=== PATIENT | female | born 1985 | race Caucasian/White ===

== ENCOUNTER 2016-12-24 00:52 | Emergency (ER) | payer OTHER ==
[2016-12-24 02:32] LABS: Hematocrit 33 % (35-47); Hemoglobin 11.4 g/dl (12.0-16.0); Mean Corpuscular HGB Conc 34 g/dl (31-36); Mean Corpuscular Hemoglobin 32 pg (27-31); Mean Corpuscular Volume 92 fL (80-97); Mean Platelet Volume 9 um3 (7.4-10.4); Red Blood Count 3.59 10^6/ul (4.0-5.4); Red Cell Distribution Width 14 % (10.5-15); White Blood Count 9.7 10^3/ul (3.5-10.8)
[2016-12-24 02:47] LABS: Albumin 3.4 g/dL (3.2-5.2); BUN/Creatinine Ratio 11.1 (8-20); Calcium 8.9 mg/dL (8.6-10.3); EGFR African American 170.5 (>60); EGFR Non-African American 132.6 (>60); Globulin 3.1 g/dL (2-4); Potassium 3.3 mmol/L (3.5-5.0); Total Bilirubin 0.3 mg/dL (0.2-1.0); Total Protein 6.5 g/dL (6.4-8.9)
[2016-12-24] MEDS ORDERED: Amoxicillin PO (*) 500 MG CAP PO ONE (02:56)
--- NOTE | 2016-12-24 02:56 | ED ---
Flaco Ledesma Thomas, scribed for Manohar Whalen MD on 12/24/16 at 0129 . Skin Complaint - HPI Summary HPI Summary: The pt is a 31 y/o F who is 5.5 months to the ED c/o rash on her posterior L leg and 6/10 pain in the area of the rash. She first noticed the rash two days ago. She additionally c/o fever (Tmax 101, onset yesterday), arthralgia, fatigue, and LIMON. Her OBGYN is at the [facility]. The pt claims that she has "not been keeping track of ticks" on her skin. 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, Tmax 101, Rash Related History: Insect Bite/Sting - speculated - Allergy/Home Medications Allergies/Adverse Reactions: Allergies Allergy/AdvReac Type Severity Reaction Status Date / Time Latex Allergy Itching Verified 12/24/16 01:02 PMH/Surg Hx/FS Hx/Imm Hx Previously Healthy: Yes Respiratory History: Denies: Hx Chronic Obstructive Pulmonary Disease (COPD) Opthamlomology History: Denies: Hx Legally Blind Infectious Disease History: Denies: Traveled Outside the [place] in Last 30 Days - Family History Known Family History: Positive: Other - POS: colon CA, lung CA - Social History Alcohol Use: None Substance Use Type: Reports: None Smoking Status (MU): Never Smoked Tobacco Review of Systems Positive: Fever - afebrile in the ED but claims to have have a fever 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, Tmax 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, Fatigue Eyes: Negative ENT: Negative Cardiovascular: Negative Respiratory: Negative Gastrointestinal: Negative Genitourinary: Negative Positive: Arthralgia Skin: Negative Positive: Headache Psychological: Normal All Other Systems Reviewed And Are Negative: Yes Physical Exam Triage Information Reviewed: Yes Vital Signs On Initial Exam: Initial Vitals Temp Pulse Resp BP Pulse Ox 98.9 F 105 18 120/70 96 12/24/16 01:04 12/24/16 01:04 12/24/16 01:04 12/24/16 01:04 12/24/16 01:04 Vital Signs Reviewed: Yes Appearance: Positive: Well-Appearing, No Pain Distress Skin: Positive: Warm, Other - target like lesion behind lt knee Head/Face: Positive: Normal Head/Face Inspection Eyes: Positive: TAMMY ENT: Positive: Hearing grossly normal Neck: Positive: Supple Respiratory/Lung Sounds: Positive: Clear to Auscultation, Breath Sounds Present Cardiovascular: Positive: RRR Abdomen Description: Positive: Nontender, Soft - gravid Bowel Sounds: Positive: Present Musculoskeletal: Positive: Strength/ROM Intact Neurological: Positive: Alert, Oriented to Person Place, Time Psychiatric: Positive: Affect/Mood Appropriate - [place] Coma Scale Coma Scale Total: 15 Diagnostics - Vital Signs Vital Signs Temp Pulse Resp BP Pulse Ox 12/24/16 01:09 98.9 F 105 18 120/70 96 12/24/16 01:04 98.9 F 105 18 120/70 96 - Laboratory Lab Results: Lab Results 12/24/16 12/24/16 Range/Units 02:21 02:21 WBC 9.7 (3.5-10.8) 10^3/ul RBC 3.59 L (4.0-5.4) 10^6/ul Hgb 11.4 L (12.0-16.0) g/dl Hct 33 L (35-47) % MCV 92 (80-97) fL MCH 32 H (27-31) pg MCHC 34 (31-36) g/dl RDW 14 (10.5-15) % Plt Count 193 (150-450) 10^3/ul MPV 9 (7.4-10.4) um3 Neut % (Auto) 82.2 (38-83) % Lymph % (Auto) 10.1 L (25-47) % Foster % (Auto) 6.7 (1-9) % Eos % (Auto) 0.3 (0-6) % Baso % (Auto) 0.7 (0-2) % Absolute Neuts (auto) 8.0 H (1.5-7.7) 10^3/ul Absolute Lymphs (auto) 1.0 (1.0-4.8) 10^3/ul Absolute Monos (auto) 0.6 (0-0.8) 10^3/ul Absolute Eos (auto) 0 (0-0.6) 10^3/ul Absolute Basos (auto) 0.1 (0-0.2) 10^3/ul Absolute Nucleated RBC 0 10^3/ul Nucleated RBC % 0 Sodium 133 (133-145) mmol/L Potassium 3.3 L (3.5-5.0) mmol/L Chloride 102 (101-111) mmol/L Carbon Dioxide 22 (22-32) mmol/L Anion Gap 9 (2-11) mmol/L BUN 6 (6-24) mg/dL Creatinine 0.54 (0.51-0.95) mg/dL Est GFR ( Amer) 170.5 (>60) Est GFR (Non-Af Amer) 132.6 (>60) BUN/Creatinine Ratio 11.1 (8-20) Glucose 128 H (70-100) mg/dL Calcium 8.9 (8.6-10.3) mg/dL Total Bilirubin 0.30 (0.2-1.0) mg/dL AST 31 (13-39) U/L ALT 40 (7-52) U/L Alkaline Phosphatase 44 (34-104) U/L Total Protein 6.5 (6.4-8.9) g/dL Albumin 3.4 (3.2-5.2) g/dL Globulin 3.1 (2-4) g/dL Albumin/Globulin Ratio 1.1 (1-3) Result Diagrams: 12/24/16 02:21 12/24/16 02:21 Lab Statement: Any lab studies that have been ordered have been reviewed, and results considered in the medical decision making process. Re-Evaluation - Re-Evaluation First Eval Re-Evaluation Time: 02:57 Change: Improved - results d/w pt, will tx for presumed lyme, serology sent, pt to call ob today for f/u Course/Dx - Diagnoses Provider Diagnoses: Lyme disease Discharge - Discharge Plan Condition: Stable Disposition: HOME Prescriptions: Amoxicillin CAP* [Amoxicillin 500 MG CAP*] 500 mg PO TID #60 cap Patient Education Materials: Lyme Disease (ED) Referrals: Megan Dalton [Primary Care Provider] - 3 Days The documentation as recorded by the Flaco andrade Thomas accurately reflects the service I personally performed and the decisions made by me, Manohar Whalen MD.
[2016-12-24 03:16] VITALS: BP 114/65
== END 2016-12-24 03:15 | disposition home or self-care (01) ==
LOC: ED 00:52
DX: A69.20 Lyme disease, unspecified (principal); R21 Rash and other nonspecific skin eruption; R50.9 Fever, unspecified; R51 Headache
CPT/HCPCS: 36415; 80053; 85025; 86618; 99282; A9270-GY

== ENCOUNTER 2017-08-29 20:41 | Emergency (ER) | payer OTHER ==
[2017-08-29 20:50] VITALS: BP 115/75
[2017-08-29] MEDS ORDERED: Amoxicillin PO (*) 500 MG CAP PO ONE ×2 (21:23→21:47)
--- NOTE | 2017-08-29 21:32 | UC ---
HPI Febrile Illness - HPI Summary HPI Summary: 31 yo WF c/o 2 week h/o "not feeling well" associated with increasing bodyaches - upper back pains and LBPs, fevers up to 102 with left ear pain after a flight 3 weeks ago. 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 Hx Last Menstrual Period: Jul 2016 Onset/Duration: Started Weeks Ago Timing: Constant Initial Severity: Moderate Current Severity: Severe Pain Intensity: 2 - Allergy/Home Medications Allergies/Adverse Reactions: Allergies Allergy/AdvReac Type Severity Reaction Status Date / Time latex Allergy Itching Verified 08/29/17 20:51 MS Latex [Latex] Allergy Itching Verified 12/24/16 01:02 PMH/Surg Hx/FS Hx/Imm Hx - Additional Past Medical History Additional PMH: none - Surgical History Surgical History: None - Family History Known Family History: Positive: Other - POS: colon CA, lung CA - Social History Alcohol Use: None Substance Use Type: None Smoking Status (MU): Never Smoked Tobacco - Immunization History Most Recent Influenza Vaccination: fall 2016 Most Recent Pneumonia Vaccination: never Review of Systems Constitutional: Fever, Chills, Fatigue Skin: Negative Eyes: Negative ENT: Sore Throat, Ear Ache Respiratory: Negative Cardiovascular: Negative Gastrointestinal: Negative Genitourinary: Negative Motor: Negative Neurovascular: Negative Musculoskeletal: Myalgia Neurological: Negative Psychological: Negative All Other Systems Reviewed And Are Negative: Yes Physical Exam Triage Information Reviewed: Yes Appearance: Ill-Appearing Vital Signs: Initial Vital Signs Temp 38.2 C 08/29/17 20:47 Pulse 100 08/29/17 20:47 Resp 18 08/29/17 20:47 BP 115/75 08/29/17 20:47 Pulse Ox 98 08/29/17 20:47 Eye Exam: Normal ENT: Positive: Pharyngeal erythema, TM red - on L>R Dental Exam: Normal Dental: Positive: Cervical Lymphadenopathy - 1+ anterior cervical LAD Neck exam: Normal Neck: Positive: 1 Respiratory Exam: Normal Cardiovascular Exam: Normal Abdominal Exam: Normal Musculoskeletal Exam: Normal Neurological Exam: Normal Psychological Exam: Normal Skin Exam: Normal Course/Dx - Course Course Of Treatment: rapid strep neg, left TM red, bodyaches-likely viral illness concurrent with bacterially mediated OM - Diagnoses Clinic Provider Diagnoses: Left OM. viral illness Discharge - Discharge Plan Condition: Stable Disposition: HOME Prescriptions: Amoxicillin PO (*) [Amoxicillin 875 MG (*)] 875 mg PO BID 7 Days #14 tab Patient Education Materials: Ear Infection (ED), Viral Syndrome (ED) Referrals: Non Staff,Doctor [Primary Care Provider] - Additional Instructions: take medication as directed
== END 2017-08-29 21:55 | disposition home or self-care (01) ==
LOC: UCEAST 20:41
DX: H66.92 Otitis media, unspecified, left ear (principal); B34.9 Viral infection, unspecified; Z91.040 Latex allergy status
CPT/HCPCS: 87651; 99212; A9270-GY; G0463

== ENCOUNTER 2017-12-27 08:11 | Emergency (ER) | payer OTHER ==
[2017-12-27] MEDS ORDERED: Ondansetron ODT TAB* 4 MG PO ONE (08:19)
--- OUTSIDE RECORDS SUMMARY | 2017-12-27 08:26 | XMS REPORT ---
:1985 External Reference #:[id number] Author Organization [employer] Address [address] [address] Phone [phone] Care Team Providers Name Role Phone Neptali Dumont MD Primary Care Physician Unavailable Payers Type Date Identification Numbers Payment Provider Subscriber Commercial Policy Number: [id number] [employer] Caitlyn Weiner PayID: [id number] [address] [place] [address] Problems Date Description Provider Status Onset: 12/24/2017 H/O: asthma Neptali Dumont M.D.,FACP Active Note: as child Onset: 12/27/2016 Lyme disease Neptali Dumont M.D.,FACP Inactive Inactive: 12/24/2017 Onset: 12/27/2016 Normal Neptali Dumont M.D.,FACP Resolved Resolved: 12/24/2017 Family History Date Family Member(s) Problem(s) Comments Paternal Grandmother Mental Illness Maternal Grandfather Emphysema Maternal Grandmother Osteoporosis Maternal Grandmother Mental Illness Social History Type Date Description Comments Marital Status 12/27/2016 Significant Other Lives With Family 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 [employer] ETOH Use 12/27/2016 Denies alcohol use Smoking Patient has never smoked Recreational Drug Use Denies Drug Use Daily Caffeine 12/27/2016 Does Not Consume Caffeine Exercise Type/Frequency Exercises regularly Currently Active Patient is currently sexually active General Hx Text 1 baby boy at home Allergies, Adverse Reactions, Alerts Date Description Reaction Status Severity Comments 12/27/2016 Bee Pollen active Mild Medications Medication Date Status Form Strength Qnty SIG Indications Ordering Provider Doxycycline Active Tablets 100mg 20tabs 1 by mouth Neptali Hyclate 018 twice a D. anjelica Dumont M.D.,FACP No Active Hx Unknown Medications 018 - 018 Coricidin HBP Hx Tablets 4-30mg as Neptali Cough/Cold 018 - directed Janak Dumont, [place],FACP 018 Augmentin Hx Tablets 875-125mg 14tabs 1 tablet Unknown 018 - by mouth q12 hours 018 for 7 days Hx Tablets 30tabs 1 by mouth Other Vitamin 017 - every day Ordering Provider 018 Amoxicillin Hx Capsules 500mg 42caps 1 tab tid Other 017 - po x 14 Ordering days Provider 017 Vital Signs Date Vital Result Comment 12/24/2017 Height 66 inches 5'6" Weight 137.00 lb Heart Rate 85 /min BP Systolic Sitting 98 mmHg BP Diastolic Sitting 60 mmHg Body Temperature 96.0 F O2 % BldC Oximetry 96 % BMI (Body Mass Index) 22.1 kg/m2 03/22/2017 Height 66 inches 5'6" Weight 166.38 lb Heart Rate 60 /min BP Systolic Sitting 102 mmHg BP Diastolic Sitting 56 mmHg Respiratory Rate 14 /min Body Temperature 96.6 F BMI (Body Mass Index) 26.9 kg/m2 12/27/2016 Height 167 inches 13'11" Weight 154.38 lb Heart Rate 64 /min BP Systolic Sitting 106 mmHg BP Diastolic Sitting 50 mmHg Body Temperature 98.1 F O2 % BldC Oximetry 98 % BMI (Body Mass Index) 3.9 kg/m2 Results Test Date Test Result H/L Range Note Laboratory test finding 12/24/2017 Culture Throat <pending> Procedures Description No Information Encounters Type Date Location Provider CPT E[facility]M D[facility]:10[facility] Infectious Diseases Abiola Negro R53.83 Z33.1 Office Visit 12/27/2016 2:00p [employer] Internal Neptali Dumont, 44921 A69.20 Medicine - [place] Vivek Culver,FACP O00.01 Z33.1 Plan of Care No Information Available
--- NOTE | 2017-12-27 08:38 | UC ---
UC General HPI - HPI Summary HPI Summary: This pt is a 32 y/o female presenting to [facility] c/o nausea, vomiting, and left flank pain since 23:30 last night. Pt reports her left flank pain is intermittent with nausea and vomiting. She rates her pain 10/10 in severity. She has had some bowel movements. She states she has not been able to find a comfortable position. Denies fever, vaginal bleeding, vaginal discharge. Pt notes she gave 8 months ago and she is currently breast feeding. Pt has not had her menstrual cycle yet. - History of Current Complaint Chief Complaint: UCAbdominalPain Stated Complaint: NV Time Seen by Provider: 12/27/17 08:14 Hx Obtained From: Patient Hx Last Menstrual Period: 1 1/2 year ago Onset/Duration: Lasting Hours, Still Present Timing: Intermittent Episodes Lasting: - minutes Current Severity: Severe Pain Intensity: 10 Pain Location at: left flank Aggravating: nothing Alleviating: nothing Associated Signs & Symptoms: Positive: Nausea, Vomiting, Other - POS: left flank pain. Negative: Chest Pain, Fever, SOB - Allergy/Home Medications Allergies/Adverse Reactions: Allergies Allergy/AdvReac Type Severity Reaction Status Date / Time latex Allergy Itching Verified 12/27/17 08:19 Home Medications: Home Medications Acetaminophen [Tylenol Extra Strength] 500 mg PO Q6H PRN 12/27/17 [History Confirmed 12/27/17] Ibuprofen TAB* [Motrin TAB* 600 MG] 600 mg PO Q6H PRN 12/27/17 [History Confirmed 12/27/17] PMH/Surg Hx/FS Hx/Imm Hx - Additional Past Medical History Additional PMH: PMHx: Lyme disease Other Endocrine History: DENIES: diabetes Other Cardiovascular History: DENIES: HTN - Surgical History Surgical History: None - Family History Known Family History: Positive: Other - POS: colon CA, lung CA - Social History Alcohol Use: None Substance Use Type: None Smoking Status (MU): Never Smoked Tobacco - Immunization History Most Recent Influenza Vaccination: fall 2016 Most Recent Pneumonia Vaccination: never Review of Systems Constitutional: Negative Skin: Negative Eyes: Negative ENT: Negative Respiratory: Negative Cardiovascular: Negative Gastrointestinal: Vomiting, Nausea, Other - POS: Left flank pain Genitourinary: Negative - NEGATIVE: vaginal discharge and bleeding Motor: Negative Neurovascular: Negative Musculoskeletal: Negative Neurological: Negative Psychological: Negative All Other Systems Reviewed And Are Negative: Yes Physical Exam - Summary Physical Exam Summary: VITAL SIGNS: Reviewed. GENERAL: Patient is a well-developed and nourished female who is lying in the stretcher. Patient is not in any acute respiratory distress. HEAD AND FACE: Normocephalic EYES: PERRLA, EOMI x 2. EARS: Hearing grossly intact. MOUTH: Oropharynx within normal limits. NECK: Supple, trachea is midline, no adenopathy, no JVD, no carotid bruit. CHEST: Symmetric, no tenderness at palpation LUNGS: Clear to auscultation bilaterally. No wheezing or crackles. CVS: Regular rate and rhythm, S1 and S2 present, no murmurs or gallops appreciated. ABDOMEN: Soft. Bowel sounds are normal. No abdominal abnormal pulsations. Left costovertebral angle tenderness. EXTREMITIES: Full ROM in all major joints, no edema, no cyanosis or clubbing. NEURO: Alert and oriented x 3. No acute neurological deficits. Speech is normal and follows commands. SKIN: Dry and warm Triage Information Reviewed: Yes Vital Signs: Initial Vital Signs Temp 98 F 12/27/17 08:15 Pulse 70 12/27/17 08:15 Resp 16 12/27/17 08:15 BP 104/63 12/27/17 08:15 Pulse Ox 98 12/27/17 08:15 Vital Signs Reviewed: Yes Diagnostics - Laboratory Diagnostic Studies Completed/Ordered: Abdomen/Pelvis CT, as read by radiologist. IMPRESSION: There is fullness of the left renal collecting system although calcification in the pelvis likely represent phleboliths rather than ureteral calculi. Correlation with hematuria is suggested. No other fluid collections are noted. Dr. Yepez has reviewed this radiology report. Re-Evaluation - Re-Evaluation First Eval Re-Evaluation Time: 10:00 Change: Worse Comment: Pt is feeling worse. She will be transferred to the ED. Second Eval Re-Evaluation Time: 10:29 Comment: Ambulance has arrived. Course/Dx - Course Course Of Treatment: Pt is a 32 y/o female presenting to [facility] c/o nausea, vomiting, and left flank pain since 23:30 last night. Pt reports her left flank pain is intermittent with nausea and vomiting. She rates her pain 10/10 in severity. She has had some bowel movements. She states she has not been able to find a comfortable position. Denies fever, vaginal bleeding, vaginal discharge. Pt notes she gave 8 months ago and she is currently breast feeding. Pt has not had her menstrual cycle yet. Patient initially was recommended to the emergency department but she declines. Therefore I ordered a urinalysis, test and abdomen CT to rule out kidney stones. Urinalysis shows 3+ blood, 1+ protein, and trace ketones. Abdomen/pelvis CT shows there is fullness of the left renal collecting system although calcification in the pelvis likely represent phleboliths rather than ureteral calculi. Correlation with hematuria is suggested. No other fluid collections are noted. In the UC course the pt was given IV fluids, toradol, and zofran. I discussed the case with Dr. Sierra, radiologist, who recommends to obtain an ultrasound to assess ureteral jets. Pt reports she is not feeling better after medications. She reports that the pain has increased. She is recommended to go to the ED for further work up and management, and she agrees. Pt will be transferred to [facility] by ambulance. I discussed the case with Dr. Hawk, provider from [facility], who states there is no urology coverage today and she needs to be transferred to another facility with a urology coverage. Patient declined to go anywhere else. I placed a call for Dr. Hankins, urologist, and left a message regarding the pt. I discussed the case with Dr. Hankins from urology and recommends to do a renal ultrasound for assessment of the jets. He also recommends IV fluids and pain control. I spoke with Dr. Hawk again and she is aware of pt going to the ED via ambulance. Pt will be transferred to the ED via EMS. Dr. Hawk from the emergency department is aware. Patient is being transferred via ambulance. - Differential Dx - Multi-Symptom Provider Diagnoses: Hematuria. Flank pain - Physician Notifications Discussed Patient Care With: Solange Sierra Time Discussed With Above Provider: 09:54 Instructed by Provider To: Other - Dr. Sierra recommends to do an ultrasound to assess ureteral jets. [10:04] I discussed the case with Dr. Hawk, provider from the ED, and states there is no urology coverage today. [10:16] I placed a call for Dr. Hankins and left a message for him regarding the pt. [10:24] I spoke with Dr. Hawk and she is aware of pt going to the ED via ambulance. Discharge - Sign-Out/Discharge Documenting (check all that apply): Patient Departure - Transfer to the ED - Discharge Plan Condition: Stable Disposition: TRANS HIGHER LVL OF CARE FAC Patient Education Materials: Hematuria (ED), Flank Pain (ED) Referrals: Neptali Dumont MD [Medical Doctor] - Additional Instructions: Patient is discharged to the emergency department for further workup and management. Patient and the patient's declined ambulance transport. - Billing Disposition and Condition Condition: STABLE Disposition: Trans Higher Lvl of Care Fac
[2017-12-27] MEDS ORDERED: Ketorolac INJ* 30 MG/ML 1 ML VIAL IV PUSH ONE (09:14)
[2017-12-27] MEDS ORDERED: NS 0.9% 1000 ML* 1,000 ML IV ONE (09:14)
--- NOTE | 2017-12-27 09:38 | RAD ---
Indication: Left flank pain. CT of the abdomen and pelvis was performed without oral or IV contrast administration. Coronal and sagittal reconstructed images were obtained. The lung bases demonstrate no pleural fluid, nodules or masses. Heart is of normal size without evidence of pericardial effusion. Liver is normal in size. No focal lesions or intrahepatic ductal dilatation is noted. The gallbladder demonstrates no calcified gallstones, pericholecystic fluid or wall thickening. The common duct is not dilated. The spleen is normal in size. No adrenal masses are noted. The kidneys demonstrate minimal fullness of the left renal collecting system. There is a calcification in the left pelvis which is felt to represent represent a phlebolith rather than a ureteral calculi. No dilated loops of bowel are noted. Urinary bladder is partially collapsed. Small bowel demonstrates no abnormal dilatation. No retroperitoneal adenopathy is noted. No hernias are noted. IMPRESSION: There is fullness of the left renal collecting system although calcification in the pelvis likely represent phleboliths rather than ureteral calculi. Correlation with hematuria is suggested. No other fluid collections are noted.
[2017-12-27 10:05] VITALS: BP 103/56
== END 2017-12-27 10:40 | disposition short-term general hospital (02) ==
LOC: UCEAST 08:11
DX: R31.9 Hematuria, unspecified (principal); R10.9 Unspecified abdominal pain; R11.2 Nausea with vomiting, unspecified; Z91.040 Latex allergy status; Z86.19 Personal history of other infectious and parasitic diseases; Z80.0 Family history of malignant neoplasm of digestive organs; Z80.1 Family history of malignant neoplasm of trachea, bronchus and lung
CPT/HCPCS: 74176; 81003; 84702; 96361; 96374; 99213; A9270-GY; G0463; J1885

== ENCOUNTER 2017-12-27 10:57 | Emergency (ER) | payer OTHER ==
[2017-12-27] MEDS ORDERED: NS 0.9% 1000 ML* 2,000 ML IV ONE (11:01)
--- NOTE | 2017-12-27 11:03 | ED ---
Abdominal Pain/Female - HPI Summary HPI Summary: 32 year old F BIB EMS from [facility] to [facility] complains of left flank pain that radiates to her left abdomen since 23:30 yesterday. The patient rates the pain 7 /10 in severity. Symptoms aggravated by nothing. Symptoms alleviated by nothing. She reports hematuria, cloudy urine, some loose BM's. Additionally complains of intermittent nausea and vomiting. She denies fever, vaginal bleeding, vaginal discharge. Patient comes from [facility] for further evaluation for hematuria, left flank pain, and follow up on her CT Abd/Pel results, which showed no kidney stones. Also here to evaluate ureteral jets with ultrasound and for pain control. Pt was seen by Dr. Yepez, who spoke with Dr. Hankins (Dr. Hankins not vice president corporate communications, pt is not established with Dr. Hankins) No hx kidney stones. Patient has not had menses since giving 8 months ago. Her LNMP was June 2016. Pt is her 8 month old infant. Patient given 30 mg Toradol IV and 4 Zofran PO for pain [employer] at urgent care with some relief. Home Medications Medication Instructions Recorded Confirmed Type Acetaminophen [Tylenol Extra 500 mg PO Q6H PRN 12/27/17 12/27/17 History Strength] Ibuprofen TAB* [Motrin TAB* 600 MG] 600 mg PO Q6H PRN 12/27/17 12/27/17 History - History of Current Complaint Stated Complaint: LT FLANK PAIN Hx Obtained From: Patient, Medical Records, Other: - Dr. Lucho Emery Last Menstrual Period: Jun 2016 ?: No - no menses since giving 8 months ago. Onset/Duration: Sudden Onset, Lasting Hours - 12, Still Present Timing: Constant Severity Initially: Severe Severity Currently: Moderate Pain Intensity: 7 Pain Scale Used: 0-10 Numeric Location: Flank - left Radiates: Yes Radiates to: Other - left abdomenn Character: Sharp Aggravating Factor(s): Nothing Alleviating Factor(s): Nothing Associated Signs and Symptoms: Positive: Negative - fever, vaginal bleeding, vaginal discharge., Nausea, Vomiting, Other: - hematuria, cloudy urine, intermittent nausea and vomiting. Allergies/Adverse Reactions: Allergies Allergy/AdvReac Type Severity Reaction Status Date / Time latex Allergy Itching Verified 12/30/17 16:32 PMH/Surg Hx/FS Hx/Imm Hx Previously Healthy: No Endocrine/Hematology History: Denies: Hx Diabetes Cardiovascular History: Denies: Hx Hypertension Respiratory History: Denies: Hx Chronic Obstructive Pulmonary Disease (COPD) History: Denies: Hx Kidney Stones Musculoskeletal History: Reports: Other Musculoskeletal History - Lyme disease Sensory History: Denies: Hx Legally Blind Opthamlomology History: Denies: Hx Legally Blind - Surgical History Surgery Procedure, Year, and Place: Ganglion cyst 02/2008 Infectious Disease History: No - Family History Known Family History: Positive: Other - POS: colon CA, lung CA - Social History Occupation: Employed Part-time Lives: With Family Alcohol Use: None Hx Substance Use: No Substance Use Type: Reports: None Hx Tobacco Use: No Smoking Status (MU): Never Smoked Tobacco Review of Systems Negative: Fever Cardiovascular: Negative Respiratory: Negative Positive: Vomiting, Nausea, Other - left flank pain that radiates to her left abdomen Genitourinary: Negative - vaginal bleeding, vaginal discharge Positive: hematuria, other - cloudy urine Skin: Negative Neurological: Negative Psychological: Normal All Other Systems Reviewed And Are Negative: Yes Physical Exam - Summary Physical Exam Summary: Appearance: Ill-appearing, severe pain distress, well-nourished Skin: Pale, warm, color reflects adequate perfusion, dry Head: Normal Head/Face inspection, atraumatic Eyes: Conjunctiva clear ENT: Normal inspection Neck: Supple, no nodes, no JVD Respiratory: Lungs clear, normal breath sounds, no respiratory distress Cardio: RRR, No murmur, pulses normal, brisk capillary refill Abdomen: Tender in LUQ, no guarding, no rebound, no masses, left CVA tenderness Bowel sounds: Present Musculoskeletal: Strength Intact/ROM intact, no calf tenderness, no edema. Psychological: Normal Neuro: Alert, muscle tone normal, no focal deficit Triage Information Reviewed: Yes Vital Signs Reviewed: Yes Diagnostics - Laboratory Result Diagrams: 12/27/17 11:17 12/27/17 11:17 Lab Statement: Any lab studies that have been ordered have been reviewed, and results considered in the medical decision making process. - Additional Comments Diagnostic Additional Comments: Renal US, per radiologist, shows MILD LEFT HYDRONEPHROSIS. NO LEFT URETERAL JET IS IDENTIFIED. ED physician has reviewed this report. Re-Evaluation - Re-Evaluation First Eval Re-Evaluation Time: 11:39 Change: Worse Comment: Patient's pain is now 10/10. She is shaking. She doesn't want to take pain medication because she is nursing. Second Eval Re-Evaluation Time: 13:54 Change: Improved Comment: Patient is feeling better. She was given discharge instructions and is agreeable to discharge. Abdominal Pain Fem Course/Dx - Course Course Of Treatment: Medications reviewed this visit. Allergies noted. Bloodwork obtained. US renal shows MILD LEFT HYDRONEPHROSIS. NO LEFT URETERAL JET IS IDENTIFIED. Patient given IV fluids and Morphine in ED course. She declines pain medication because she is her . Dr. Hankins, urology, states since hydronephrosis is mild and no definite stone identified, and no sign of infection or fever, he recommends Ibuprofen 600 x3 per day. He also recommends that patient should strain urine, use heating pads, "flood herself with fluids". Patient discharged with instructions to do so and to follow up with Dr. Hankins. Dr. Hankins states that even though he is not vice president corporate communications, he will care for pt this weekend, if pt has complications, fever, or worsening pain. [place] on 12/30[place]17. Dr. Hankins agrees to see pt in his office now to discuss treatment and plan for care in person with pt and her . - Diagnoses Differential Diagnosis: Positive: Renal Colic, Urinary Tract Infection, Other - pyelonephritis, hydronephrosis Provider Diagnoses: Hematuria, Hydronephrosis, left, Left flank pain, Lactating mother - Provider Notifications Discussed Care Of Patient With: Patricio Hankins Time Discussed With Above Provider: 13:48 Instructed by Provider To: Other - Dr. Hankins, urology, advises that patient can take Ibuprofen 600 TID this weekend. He recommends that patient should strain urine, use heating pads, flood herself with fluids. She may call him for follow up. Discharge - Sign-Out/Discharge Documenting (check all that apply): Patient Departure - Discharge - Discharge Plan Condition: Stable Disposition: HOME Patient Education Materials: Hematuria (ED), How to Strain Your Urine (ED), Flank Pain (ED), Hydronephrosis (ED) Referrals: No Primary Care Phys,NOPCP [Medical Doctor] - Patricio Hankins MD [Medical Doctor] - 3 Days Additional Instructions: Follow up with Dr. Hankins, urology, in 3 days. We have given you a copy of your ultrasound results. Take 600mg Ibuprofen three times a day. Strain all your urine. Use heating pads. Flood yourself with fluids. RETURN TO THE EMERGENCY DEPARTMENT FOR CHANGING OR WORSENING SYMPTOMS, especially if these include severe pain, fever, or vomiting. - Billing Disposition and Condition Condition: STABLE Disposition: Home
[2017-12-27 11:31] LABS: ABS Basophils 0 10^3/ul (0-0.2); ABS Eosinophils 0 10^3/ul (0-0.6); ABS Lymphocytes 1.9 10^3/ul (1.0-4.8); ABS Monocytes 0.7 10^3/ul (0-0.8); ABS Neutrophils 6.9 10^3/ul (1.5-7.7); ABS Nucleated RBC 0 10^3/ul; Eosinophil % 0.3 % (0-6); Hematocrit 33 % (35-47); Hemoglobin 11.3 g/dl (12.0-16.0); Lymphocyte % 19.4 % (25-47); Mean Corpuscular HGB Conc 34 g/dl (31-36); Mean Corpuscular Hemoglobin 29 pg (27-31); Mean Corpuscular Volume 83 fL (80-97); Mean Platelet Volume 8.3 um3 (7.4-10.4); Nucleated Red Blood Cells % 0.1; Platelet Count 215 10^3/ul (150-450); Red Blood Count 3.95 10^6/ul (4.00-5.40); Red Cell Distribution Width 16 % (10.5-15); White Blood Count 9.6 10^3/ul (3.5-10.8)
[2017-12-27] MEDS ORDERED: Morphine VIAL* 4 MG/ML VIAL (1 ml vial) IV ONE (11:40)
[2017-12-27 11:47] LABS: EGFR Non-African American 80.2 (>60)
[2017-12-27] MEDS ORDERED: NS 0.9% 1000 ML* 1,000 ML IV ONE (13:08)
--- NOTE | 2017-12-27 13:27 | RAD ---
HISTORY: hematuria, Lflank pain,eval jets COMPARISONS: None TECHNIQUE: Multiple transverse and longitudinal ultrasound images were obtained of the left kidney and bladder using grayscale and color Doppler imaging. FINDINGS: RIGHT KIDNEY: No images are submitted of the right kidney LEFT KIDNEY: The left kidney is normal in shape, size, contour, and echogenicity. There is mild left pelvocaliectasis. The left kidney measures 11.3 x 6.4 x 5.5 cm. BLADDER: No left ureteral jet is identified. AORTA AND IVC: No images are submitted of the vasculature. RETROPERITONEUM: Unremarkable. OTHER: None. IMPRESSION: MILD LEFT HYDRONEPHROSIS. NO LEFT URETERAL JET IS IDENTIFIED.
[2017-12-27 14:57] VITALS: BP 105/72
== END 2017-12-27 14:55 | disposition home or self-care (01) ==
LOC: ED 10:57
DX: O99.89 Other specified diseases and conditions complicating pregnancy, childbirth and the puerperium (principal); N13.30 Unspecified hydronephrosis; R31.9 Hematuria, unspecified; R10.9 Unspecified abdominal pain; Z88.5 Allergy status to narcotic agent
CPT/HCPCS: 36415; 76775; 80053; 83605; 84702; 85025; 86140; 96360; 99283

== ENCOUNTER 2017-12-28 20:34 | Observation (INO) | payer OTHER ==
[2017-12-28] MEDS ORDERED: Lactated Ringers 1000 ml Bag*IV.FLUID IV ONE (21:06)
[2017-12-28] MEDS ORDERED: cefTRIAXone(*) 1 GM in NS 0.9% 50 ML* 50 ML IVPB ONE (21:07)
[2017-12-28] MEDS ORDERED: Gentamicin ADULT (*) 100 MG in NS 0.9% 100 ML* 100 ML IVPB ONE (21:08)
[2017-12-28] MEDS ORDERED: Gentamicin IVPREMIX 100 MG/100 ML BAG IV ONE (21:12)
--- NOTE | 2017-12-28 21:45 | ED ---
Abdominal Pain/Female - HPI Summary HPI Summary: Pt is 32 y/o F presents with Sx similar to those of having Kidney stones onset 2329 last night. Associated Sx: L flank pain described as excruciating, N/V, fever, chills. Pt went to in AM, following negative CT so she was referred to the ED. - History of Current Complaint Chief Complaint: EDFever Stated Complaint: FLANK PAIN Time Seen by Provider: 12/28/17 21:06 Hx Obtained From: Patient Hx Last Menstrual Period: Jun 2016 Onset/Duration: Sudden Onset - 2329 last night, Lasting Days, Still Present Timing: Constant Severity Currently: Moderate Pain Intensity: 6 Pain Scale Used: 0-10 Numeric Location: Flank - L flank Radiates: Yes Radiates to: Back - L back Character: Other: - excruciating Aggravating Factor(s): Nothing Alleviating Factor(s): OTC Analgesics Associated Signs and Symptoms: Positive: Fever, Nausea, Vomiting, Other: - L Flank pain Allergies/Adverse Reactions: Allergies Allergy/AdvReac Type Severity Reaction Status Date / Time latex Allergy Itching Verified 12/27/17 08:19 PMH/Surg Hx/FS Hx/Imm Hx Endocrine/Hematology History: Denies: Hx Diabetes Cardiovascular History: Denies: Hx Hypertension Respiratory History: Denies: Hx Chronic Obstructive Pulmonary Disease (COPD) History: Denies: Hx Kidney Stones Musculoskeletal History: Reports: Other Musculoskeletal History - lyme disease Sensory History: Denies: Hx Legally Blind Opthamlomology History: Denies: Hx Legally Blind - Surgical History Surgery Procedure, Year, and Place: Ganglion cyst 02/2008 Infectious Disease History: No Infectious Disease History: Denies: Traveled Outside the [place] in Last 30 Days - Family History Known Family History: Positive: Other - POS: colon CA, lung CA - Social History Occupation: Employed Full-time Lives: With Family Alcohol Use: None Hx Substance Use: No Substance Use Type: Reports: None Hx Tobacco Use: No Smoking Status (MU): Never Smoked Tobacco Review of Systems Positive: Fever, Chills Positive: Abdominal Pain - L Flank radiating to back, Vomiting, Nausea All Other Systems Reviewed And Are Negative: Yes Physical Exam - Summary Physical Exam Summary: Appearance: Well-appearing, Well-nourished, lying in bed comfortably Skin: Warm, dry, no obvious rash Eyes: sclera anicteric, no conjunctival pallor ENT: mucous membranes moist, pharynx appears normal Neck: Supple, nontender Respiratory: Clear to auscultation, no signs of respiratory distress Cardiovascular: Normal S1, S2. No murmurs. Normal distal pulses in tibial and radial bilaterally. Abdomen: Soft, nontender, normal active bowel sounds present Musculoskeletal: Strength/ROM Intact, L CVA tenderness Neurological: A&Ox3, awake and alert, mentation is normal, speech is fluent and appropriate Psychiatric: affect is normal, does not appear anxious or depressed Triage Information Reviewed: Yes Vital Signs On Initial Exam: Initial Vitals Temp Pulse Resp BP Pulse Ox 99.0 F 70 16 116/74 98 12/28/17 20:53 12/28/17 20:53 12/28/17 20:53 12/28/17 20:53 12/28/17 20:53 Vital Signs Reviewed: Yes Diagnostics - Vital Signs Vital Signs Temp Pulse Resp BP Pulse Ox 12/28/17 20:53 99.0 F 70 16 116/74 98 - Laboratory Result Diagrams: 12/28/17 21:56 12/28/17 21:56 Lab Statement: Any lab studies that have been ordered have been reviewed, and results considered in the medical decision making process. Abdominal Pain Fem Course/Dx - Diagnoses Provider Diagnoses: Pyelonephritis, Kidney stone - Provider Notifications Discussed Care Of Patient With: Sid Allen - the case was also discussed with the patient's neurologist, Dr. Prajapati Time Discussed With Above Provider: 22:20 Instructed by Provider To: Admit As Inpatient - Discussed the case of pt with Dr. Catherine. Discharge - Sign-Out/Discharge Documenting (check all that apply): Patient Departure - Discharge Plan Condition: Good Disposition: ADMITTED TO [facility] Referrals: Neptali Dumont MD [Primary Care Provider] - - Billing Disposition and Condition Condition: GOOD Disposition: Admitted to [facility]
[2017-12-28 22:06] LABS: ABS Basophils 0 10^3/ul (0-0.2); ABS Eosinophils 0.3 10^3/ul (0-0.6); ABS Lymphocytes 1.4 10^3/ul (1.0-4.8); ABS Monocytes 0.5 10^3/ul (0-0.8); ABS Neutrophils 4.1 10^3/ul (1.5-7.7); ABS Nucleated RBC 0 10^3/ul; Hematocrit 34 % (35-47); Hemoglobin 11.7 g/dl (12.0-16.0); Lymphocyte % 22.3 % (25-47); Mean Corpuscular HGB Conc 34 g/dl (31-36); Mean Corpuscular Hemoglobin 29 pg (27-31); Mean Corpuscular Volume 84 fL (80-97); Mean Platelet Volume 8.2 um3 (7.4-10.4); Nucleated Red Blood Cells % 0; Platelet Count 202 10^3/ul (150-450); Red Blood Count 4.09 10^6/ul (4.00-5.40); Red Cell Distribution Width 16 % (10.5-15); White Blood Count 6.3 10^3/ul (3.5-10.8)
[2017-12-28 22:21] LABS: EGFR Non-African American 82.5 (>60)
[2017-12-28 22:25] LABS: Urine Appearance Cloudy; Urine Blood 3+ (Negative); Urine Color Yellow; Urine Ketones Negative (Negative); Urine Protein Negative (Negative); Urine Red Blood Cell 1+(3-5/hpf) (Absent); Urine Specific Gravity 1.009 (1.010-1.030); Urine Urobilinogen Negative (Negative); Urine White Blood Cell 2+(11-20/hpf) (Absent)
[2017-12-29] MEDS ORDERED: Ibuprofen TAB* 600 MG PO ONE (00:04)
--- NOTE | 2017-12-29 02:56 | HP ---
H&P (Free Text) History and Physical: PCP: BRUNO Dumont MD Urology: Moisés Hankins MD Date/Time: 12/29/2017 0230 CC: L flank pain HPI: Mrs Wiener is a healthy 32YO female who awoke 12/26 ~2330 with L flank pain w/ N/V for which she called her PCP and was advised she was likely passing a kidney stone. She was advised OTC ibuprofen which allowed her to await morning. She presented to urgent care around 0712/27 and was transferred to [facility] ED where CT showed "fullness of the left renal collecting system" without identification of a stone. Renal US failed to identify a L ureteral jet. She was discharged to follow up with Moisés Hankins MD urology which she did. At that appointment she was advised the presumed stone would likely pass within 24-48H and given a list of red flags. One of which developed last evening in the form of fever Tm 101.5F. Re-evaluation tonight yields she is afebrile, stable vitals , & WBCs 6.3k w/o granulocytic shift. ED has consulted Dr Hankins who advised ABX , IVFs, renal US in AM w/ evaluation of ureteral jets, & he will evaluate in the AM. PMedHx denies Ambulatory Orders Nursing to reconcile. 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 ROS: as above, otherwise reviewed and all were negative vitals: Vital Signs Temp 36.9 C 12/28/17 23:47 Pulse 70 12/28/17 23:47 Resp 16 12/28/17 23:47 BP 105/67 12/28/17 23:47 Pulse Ox 99 12/28/17 23:47 Intake & Output 07/14/18 07/14/18 07/15/18 11:59 23:59 11:59 Intake Total 2009 Balance 2010 Weight 62.142 kg Intake: IV Fluids 2009 Constitutional: NAD, normally developed, well-nourished white female HEENM: atraumatic; sclera/conjunctiva: anicteric/clear; hearing: clinically intact; oropharynx: clear, mucosa moist Neck: soft tissue: non-tender; thyroid: normal Pulmonary: clear to auscultation bilaterally, good aeration, no accessory muscle use CV: RR/RR, normal S1S2, no carotid bruit, no jugular venous distention, 2+ B DP/ PT, no edema Abdominal: soft, non-distended, mild diffuse tenderness without rebound/guarding /rigidity, normoactive bowel sounds, no hepatosplenomegaly or masses, mild L costovertebral angle tenderness Musculoskeletal: general: grossly intact, non-tender Integumental: normal appearance and texture of exposed skin Psychiatric orientation: AA&O to PPS affect: calm mood: cooperative eye contact: good content: reliable responses: timely insight: good Testing: Lab Results 12/28/17 12/28/17 12/28/17 Range/Units 21:46 21:56 21:56 WBC 6.3 (3.5-10.8) 10^3/ul RBC 4.09 (4.00-5.40) 10^6/ul Hgb 11.7 L (12.0-16.0) g/dl Hct 34 L (35-47) % MCV 84 (80-97) fL MCH 29 (27-31) pg MCHC 34 (31-36) g/dl RDW 16 H (10.5-15) % Plt Count 202 (150-450) 10^3/ul MPV 8.2 (7.4-10.4) um3 Neut % (Auto) 65.4 (38-83) % Lymph % (Auto) 22.3 L (25-47) % Crook % (Auto) 7.5 H (0-7) % Eos % (Auto) 4.0 (0-6) % Baso % (Auto) 0.8 (0-2) % Absolute Neuts (auto) 4.1 (1.5-7.7) 10^3/ul Absolute Lymphs (auto) 1.4 (1.0-4.8) 10^3/ul Absolute Monos (auto) 0.5 (0-0.8) 10^3/ul Absolute Eos (auto) 0.3 (0-0.6) 10^3/ul Absolute Basos (auto) 0 (0-0.2) 10^3/ul Absolute Nucleated RBC 0 10^3/ul Nucleated RBC % 0 Sodium 139 (135-145) mmol/L Potassium 3.3 L (3.5-5.0) mmol/L Chloride 106 (101-111) mmol/L Carbon Dioxide 26 (22-32) mmol/L Anion Gap 7 (2-11) mmol/L BUN 11 (6-24) mg/dL Creatinine 0.81 (0.51-0.95) mg/dL Est GFR ( Amer) 99.8 (>60) Est GFR (Non-Af Amer) 82.5 (>60) BUN/Creatinine Ratio 13.6 (8-20) Glucose 96 (70-100) mg/dL Lactic Acid (0.5-2.0) mmol/L Calcium 9.1 (8.6-10.3) mg/dL Total Bilirubin 0.30 (0.2-1.0) mg/dL AST 21 (13-39) U/L ALT 25 (7-52) U/L Alkaline Phosphatase 58 (34-104) U/L Total Protein 6.7 (6.4-8.9) g/dL Albumin 3.8 (3.2-5.2) g/dL Globulin 2.9 (2-4) g/dL Albumin/Globulin Ratio 1.3 (1-3) Urine Color Yellow Urine Appearance Cloudy Urine pH 5.0 (5-9) Ur Specific [place] 1.009 L (1.010-1.030) Urine Protein Negative (Negative) Urine Ketones Negative (Negative) Urine Blood 3+ A (Negative) Urine Nitrate Negative (Negative) Urine Bilirubin Negative (Negative) Urine Urobilinogen Negative (Negative) Ur Leukocyte Esterase 2+ A (Negative) Urine WBC (Auto) 2+(11-20/hpf) A (Absent) Urine RBC (Auto) 1+(3-5/hpf) A (Absent) Ur Squamous Epith Cells Present A (Absent) Urine Bacteria Absent (Absent) Urine Glucose Negative (Negative) 12/28/17 12/29/17 Range/Units 21:56 00:55 WBC (3.5-10.8) 10^3/ul RBC (4.00-5.40) 10^6/ul Hgb (12.0-16.0) g/dl Hct (35-47) % MCV (80-97) fL MCH (27-31) pg MCHC (31-36) g/dl RDW (10.5-15) % Plt Count (150-450) 10^3/ul MPV (7.4-10.4) um3 Neut % (Auto) (38-83) % Lymph % (Auto) (25-47) % Crook % (Auto) (0-7) % Eos % (Auto) (0-6) % Baso % (Auto) (0-2) % Absolute Neuts (auto) (1.5-7.7) 10^3/ul Absolute Lymphs (auto) (1.0-4.8) 10^3/ul Absolute Monos (auto) (0-0.8) 10^3/ul Absolute Eos (auto) (0-0.6) 10^3/ul Absolute Basos (auto) (0-0.2) 10^3/ul Absolute Nucleated RBC 10^3/ul Nucleated RBC % Sodium (135-145) mmol/L Potassium (3.5-5.0) mmol/L Chloride (101-111) mmol/L Carbon Dioxide (22-32) mmol/L Anion Gap (2-11) mmol/L BUN (6-24) mg/dL Creatinine (0.51-0.95) mg/dL Est GFR ( Amer) (>60) Est GFR (Non-Af Amer) (>60) BUN/Creatinine Ratio (8-20) Glucose (70-100) mg/dL Lactic Acid 0.8 0.8 (0.5-2.0) mmol/L Calcium (8.6-10.3) mg/dL Total Bilirubin (0.2-1.0) mg/dL AST (13-39) U/L ALT (7-52) U/L Alkaline Phosphatase (34-104) U/L Total Protein (6.4-8.9) g/dL Albumin (3.2-5.2) g/dL Globulin (2-4) g/dL Albumin/Globulin Ratio (1-3) Urine Color Urine Appearance Urine pH (5-9) Ur Specific [place] (1.010-1.030) Urine Protein (Negative) Urine Ketones (Negative) Urine Blood (Negative) Urine Nitrate (Negative) Urine Bilirubin (Negative) Urine Urobilinogen (Negative) Ur Leukocyte Esterase (Negative) Urine WBC (Auto) (Absent) Urine RBC (Auto) (Absent) Ur Squamous Epith Cells (Absent) Urine Bacteria (Absent) Urine Glucose (Negative) CT abd/pel, personally reviewed (12/27/2017): IMPRESSION: There is fullness of the left renal collecting system although calcification in the pelvis likely represent phleboliths rather than ureteral calculi. Correlation with hematuria is suggested. No other fluid collections are noted. renal US, (12/27/2017): IMPRESSION: MILD LEFT HYDRONEPHROSIS. NO LEFT URETERAL JET IS IDENTIFIED. Impression: 32F re-presenting for L flank pain 2nd L ureterolithiasis and new fever of 100.5F at home DIAGNOSIS & PLAN Primary L ureterolithiasis w/ obstruction & fever, DOES NOT meet SIRS criteria : IVFs : IV ABX : Moisés Hankins MD consulted by ED, will evaluate in AM : blood & urine CXs : pain control : supportive care Admission Rational: observation for obstructive L uropathy & fever DVTp: DANA Code Status: full HCP:
[2017-12-29] MEDS ORDERED: Morphine VIAL* 4 MG/ML VIAL (1 ml vial) IV PRN (03:22)
[2017-12-29] MEDS ORDERED: Ondansetron ODT TAB* 4 MG PO PRN (03:22)
[2017-12-29] MEDS ORDERED: Acetaminophen TAB* 325 MG PO PRN (03:22)
[2017-12-29] MEDS ORDERED: NS 0.9% 1000 ML* 1,000 ML IV SCH (03:30)
[2017-12-29 05:55] LABS: ABS Basophils 0 10^3/ul (0-0.2); ABS Eosinophils 0.3 10^3/ul (0-0.6); ABS Lymphocytes 1.7 10^3/ul (1.0-4.8); ABS Monocytes 0.5 10^3/ul (0-0.8); ABS Neutrophils 2.9 10^3/ul (1.5-7.7); ABS Nucleated RBC 0 10^3/ul; Hematocrit 30 % (35-47); Hemoglobin 10.6 g/dl (12.0-16.0); Lymphocyte % 30.8 % (25-47); Mean Corpuscular HGB Conc 35 g/dl (31-36); Mean Corpuscular Hemoglobin 30 pg (27-31); Mean Corpuscular Volume 84 fL (80-97); Mean Platelet Volume 8.6 um3 (7.4-10.4); Nucleated Red Blood Cells % 0; Platelet Count 161 10^3/ul (150-450); Red Blood Count 3.61 10^6/ul (4.00-5.40); Red Cell Distribution Width 16 % (10.5-15); White Blood Count 5.4 10^3/ul (3.5-10.8)
[2017-12-29 06:04] LABS: EGFR Non-African American 102.7 (>60)
[2017-12-29] MEDS ORDERED: Docusate CAP* 100 MG PO SCH (09:00)
--- NOTE | 2017-12-29 10:58 | RAD ---
INDICATION: Left flank pain COMPARISON: Similar ultrasound examination December 27, 2017 TECHNIQUE: Real-time ultrasound examination of the left kidney and urinary bladder including grayscale and Doppler color flow analysis. FINDINGS: The left kidney measures 11.2 x 6.4 x 5.9 cm. There is no hydronephrosis or suspicious left renal mass. The visualized portions of the gallo of the urinary bladder are smooth. Bilateral ureteral jets are recorded. IMPRESSION: Normal ultrasound of the left kidney with appropriate bilateral renal jets recorded.
[2017-12-29 12:27] VITALS: BP 95/57
[2017-12-29] MEDS ORDERED: cefTRIAXone VIAL(*) 1,000 MG in NS 0.9% 50 ML* 50 ML IVPB SCH (21:00)
--- NOTE | 2017-12-29 21:35 | DS ---
C: Neptali Dumont MD * DISCHARGE SUMMARY: DATE OF ADMISSION: 12/28/17 DATE OF DISCHARGE: 12/29/17 PRIMARY CARE PROVIDER: Neptali Dumont MD MY ATTENDING WHILE IN THE HOSPITAL: Micky Hutchinson MD * (DICTATED BY LIEN HARO) PRIMARY DISCHARGE DIAGNOSES: 1. Probable left nephrolithiasis with left-sided hydronephrosis, resolved. 2. Probable pyelonephritis. SECONDARY DISCHARGE DIAGNOSIS: Anemia. STUDIES DONE WHILE IN THE HOSPITAL: Renal ultrasound from 12/29/17, read as normal ultrasound of the left kidney with appropriate bilateral renal jets recorded. MEDICATIONS AT DISCHARGE: 1. Ibuprofen 600 mg p.o. q.6 hours as needed. 5. Tylenol 500 mg p.o. q.6 hours as needed. 3. Bactrim double strength 1 tab p.o. b.i.d. x27. New medication at discharge: Bactrim. Medication discontinued at discharge: None. HOSPITAL COURSE: This is a brief summary of the patient's presentation. For more details, please see the history and physical from Dr. Sid Allen on 12/29/17. In brief, the patient is a 32-year-old female with past medical history significant for the above, who is 8 months and still , who on 12/26/17 in the evening developed left flank pain with nausea and vomiting and was advised to take [id number]-gqygtoe analgesics. The patient did not improve until the morning of 12/27/17 when she went to the [facility] which showed "fullness of the left renal collecting system without visible stone." Renal ultrasound showed no left ureteral jet. The patient will follow up with Dr. Hankins who advised her stone would pass in 24 to 48 hours she developed, but stated she should return to the hospital for elevated temperatures. The patient developed temperature at home of 101.5. The patient came to the emergency department and was admitted for observation, IV antibiotics with ceftriaxone and IV fluids. The patient had no elevated pulse rate, no documented fevers in the hospital, no white blood cell count, no significant laboratory abnormalities except for elevated leukocyte esterase, blood, red blood cells in her urine. The patient's pain improved greatly overnight. The patient had an ultrasound in the morning, which showed bilateral renal jets with no persistent fullness in the left collecting system. The patient had blood pressures which were slightly low, but was asymptomatic with no other signs of sepsis. The patient was stable and amenable for discharge to home on 12/29/17. PHYSICAL EXAMINATION ON DAY OF DISCHARGE: General: The patient is a 32-year- old female, who appears stated age and sitting comfortably in bed, in no acute distress. Vital Signs: At the time of discharge, temperature 99.1, pulse rate 51, respiratory rate 14, oxygen saturation 97% on room air, blood pressure 95/ 57. HEENT: Head: Normocephalic, atraumatic. Sclerae are anicteric. No conjunctival injection. Nasal mucosa moist. Oral mucosa moist. No pharyngeal erythema, discharge or exudate. Neck: Supple, nontender. No lymphadenopathy. No carotid bruit auscultated. No JVD. Cardiac: Regular rate and rhythm. No clicks, murmurs, gallops or rubs. Pulses are 2+ bilaterally in dorsalis pedis, posterior tibialis, and radial areas. Respiratory: Clear to auscultation bilaterally. No wheezes, rales or rhonchi. Good air exchange bilaterally. Abdomen: Soft, nontender, nondistended. Bowel sounds present, normoactive in all 4 quadrants. No hepatosplenomegaly. No abdominal bruits auscultated. Genitourinary: Mild suprapubic and left-sided CVA tenderness. Skin: Clean, dry, intact. No rash. Neurologic: Cranial nerves II through XII grossly intact. No focal deficits. Alert and oriented x3. Normal gait. Psychiatric: Pleasant and cooperative. LABORATORY DATA: On day of discharge, white blood cell count 5.4, hemoglobin 10.6, hematocrit 30, RDW of 16, platelet count 161,000. Sodium 139, potassium 3.6, chloride 108, carbon dioxide 26, anion gap 5, BUN 11, creatinine 0.67, glucose 88, calcium 8.5. DISCHARGE PLAN: The patient will be discharged to home. The patient should follow up with her primary care provider within 1 week for general medical management and to assess for continued improvement of her flank and suprapubic and abdominal pain. The patient should take her Bactrim as prescribed. Bactrim is safe for mothers due to the low levels of the drug, which are excreted in the breast milk; however, if either the patient or the patient's infant develop rash, diarrhea or other symptoms, the patient should call her primary care provider and obtain a prescription for a different antibiotic. The patient is going to [place] early next week. The patient should see her primary care provider before going. The patient should follow up with Dr. Hankins upon her return. The patient is currently stable to fly; however, and not at high risk for recurrence of nephrolithiasis or hydronephrosis. The patient should be reassessed before her flight to avoid any in-flight emergencies. The patient should return to the hospital for alarming symptoms such as high fevers , chest pain, shortness of breath or significant increased hematuria. The patient should have regular unrestricted diet and engage in activity as tolerated. TIME SPENT: Approximately 60 minutes were spent on this discharge, 30 of which was spent [id number] with the patient obtaining history and physical and discussing treatment plan. LIEN HARO [id number]/[facility] #: [id number] CIARA
== END 2017-12-29 12:30 | disposition home or self-care (01) ==
LOC: ED 20:34 → SSU 12-29 02:20
PROVIDERS: ADMIT Hospitalist; ATTEND Hospitalist
DX: R10.84 Generalized abdominal pain (principal); R50.9 Fever, unspecified; N20.0 Calculus of kidney; R11.2 Nausea with vomiting, unspecified; D64.9 Anemia, unspecified; Z87.442 Personal history of urinary calculi
CPT/HCPCS: 36415; 76775; 80048; 80053; 81003; 81015; 83605; 85025; 87040; 87086; 96365; 96366; 99284; A9270-GY; G0378; J0696; J1580

== ENCOUNTER 2017-12-30 15:45 | Day surgery (SDC) | payer OTHER ==
[2017-12-30] MEDS ORDERED: Famotidine IV* 10 MG/ML 2 ML (20 mg) IV SLOW PU ONE (16:18)
[2017-12-30] MEDS ORDERED: Iohexol 180 (CONTRAST) 10 ML SDV IV ONE (16:30)
[2017-12-30] MEDS ORDERED: cefTRIAXone(*) 2 GM ADDV.VIAL IVPB ONE (16:36)
[2017-12-30] MEDS ORDERED: Gentamicin ADULT (*) 40 MG/ML VIAL ONE (16:36)
[2017-12-30] MEDS ORDERED: Famotidine IV* 10 MG/ML 2 ML (20 mg) ONE (16:47)
[2017-12-30] MEDS ORDERED: fentaNYL* 50 MCG/ML 2 ML VIAL (100 MCG VIAL) ONE (17:28)
[2017-12-30] MEDS ORDERED: Midazolam* 1 MG/ML 5 ML VIAL (5 MG) ONE (17:29)
[2017-12-30] MEDS ORDERED: Dexamethasone IV* 4 MG/ML 1 ML (4 MG) ONE (17:30)
[2017-12-30] MEDS ORDERED: Ondansetron INJ* 2 MG/ML VIAL ONE (17:30)
[2017-12-30] MEDS ORDERED: Propofol* 10 MG/ML 20 ML BTL IV PUSH ONE (17:30)
[2017-12-30] MEDS ORDERED: Lidocaine 2% PF * 5 ML VIAL ONE (17:30)
[2017-12-30] MEDS ORDERED: Naloxone* 0.4 MG/ML 1 ML VIAL IV PRN (17:58)
[2017-12-30] MEDS ORDERED: Acetaminophen TAB* 325 MG PO PRN (17:58)
[2017-12-30] MEDS ORDERED: DiMENhydriNATE IV* 50 MG/ML VIAL IV PUSH PRN (17:58)
--- NOTE | 2017-12-30 18:19 | RAD ---
INDICATION: Left ureteral stent placement COMPARISON: None FINDINGS: 6 seconds of fluoroscopy were provided for the urology department. Fluoroscopic spot imaging of the abdomen were obtained for operative control and show left ureteral stent placement in expected position . CPT II Codes: G9500 (fluoro time doc)
[2017-12-30] MEDS ORDERED: Acetaminophen TAB* 325 MG ONE (18:48)
[2017-12-30 19:14] VITALS: BP 112/71
--- NOTE | 2017-12-31 05:47 | OP ---
CC: Dr. Neptali Dumont * DATE OF OPERATION: 12/30/17 - [facility] DATE OF : 87 SURGEON: Patricio Hankins MD ANESTHESIOLOGIST: Dr. Joseph. ANESTHESIA: General. PRE-OP DIAGNOSES: 1. Left flank pain. 2. Left ureteral calculus. POST-OP DIAGNOSES: 1. Left flank pain. 2. Left ureteral calculus. OPERATIVE PROCEDURE: Cystoscopy, left retrograde pyelogram, left ureteroscopy and left stent insertion. COMPLICATIONS: None. STENTS USED: 6-Upper Sorbian stent left ureter. OPERATIVE FINDINGS: Edema and inflammation, left distal ureter leading to mild obstructive findings with no calculus seen on ureteroscopy. POSTOPERATIVE CONDITION: Stable. INDICATIONS: Caitlyn Weiner is a 32-year-old lady, who has had episodic left flank pain and low grade fever. She had an evaluation including CT scan and subsequent multiple ultrasounds. The most recent ultrasound revealed what appeared to be a 3 mm calculus in the area of the left distal ureter. I had recommended continuing conservative management, but she is supposed to go on a international trip tomorrow and would like to have the situation corrected prior to departing. DESCRIPTION OF PROCEDURE: After induction of general anesthesia, the patient was placed in dorsal lithotomy position. Sequential compression devices were in place and functioning. Initial cystoscopy revealed a normal-appearing bladder, clear efflux was noted from the right orifice. There was clear, but reduced efflux noted from the left orifice. A hydrophilic guidewire was introduced into the left ureter. Retrograde pyelogram revealed a mild fullness of the upper ureter and the left collecting system, a 6-Upper Sorbian semirigid ureteroscope was introduced and advanced under direct vision, just above the ureterovesical junction, there was an area of moderate edema and inflammatory response noted, although I did not visualize a calculus in this area. The entire ureter was fairly narrow and the ureteroscope was carefully advanced to the level of the mid ureter and no calculus was noted. It is possible that calculus has passed, but the discomfort was due to the edema and inflammation and because the patient is embarking on an international trip I did not want to risk obstruction due to edema, so I elected to proceed with placement of a 6- Upper Sorbian stent. This was done under fluoroscopic monitoring with good proximal and distal positioning obtained. The patient tolerated the procedure satisfactorily and was transferred back to the recovery area in stable condition. [id number]/[facility] #: [id number] CIARA
== END 2017-12-30 20:05 | disposition home or self-care (01) ==
LOC: OR 15:45
PROVIDERS: ATTEND Urology
DX: N20.1 Calculus of ureter (principal)
CPT/HCPCS: 74420; A9270-GY; C1876; J0696; J1100; J1580; J2250; J2405; J2704; J3010